=== PATIENT | female | born 1985 | race Caucasian/White ===

== ENCOUNTER → 2024-03-16 | Outpatient (CLI) | payer BC, SELFPAY ==
[2024-03-16 09:25] LABS: Misc Send Out* See Sep Rpt
[2024-03-16 10:29] LABS: Free T4 (Free Thyroxine) 1.05 ng/dL (0.89-1.76); Thyroid Stimulating Hormone 0.82 uIU/mL (0.55-4.78)
[2024-03-23 06:17] LABS: 17-Hydroxyprogesterone* 10 ng/dL; DHEA Sulfate* 336 mcg/dL (23-266); Prolactin* 4.3 ng/mL; Testosterone,Total* 18 ng/dL (2-45)
== END | disposition home or self-care (01) ==
PROVIDERS: PCP Registered Nurse; Referring Provider Internal Medicine Endocrinology, Diabetes & Metabolism; Visit Provider Internal Medicine Endocrinology, Diabetes & Metabolism
DX: R63.5 Abnormal weight gain (principal)
CPT/HCPCS: 36415; 82157; 82627; 83498; 84146; 84403; 84439; 84443

== ENCOUNTER → 2024-03-17 | Outpatient (CLI) | payer BC, SELFPAY ==
[2024-03-17 12:08] LABS: Misc Send Out* See Sep Rpt
== END | disposition home or self-care (01) ==
PROVIDERS: Referring Provider Internal Medicine Endocrinology, Diabetes & Metabolism; Visit Provider Internal Medicine Endocrinology, Diabetes & Metabolism
DX: Z53.8 Procedure and treatment not carried out for other reasons (principal)

== ENCOUNTER → 2024-05-03 | Outpatient (CLI) | payer BC, SELFPAY ==
[2024-05-03 19:07] LABS: HCG,Qualitative Serum Negative
== END | disposition home or self-care (01) ==
LOC: COPL 16:28
PROVIDERS: PCP Family Medicine; Referring Provider Internal Medicine Endocrinology, Diabetes & Metabolism; Visit Provider Internal Medicine Endocrinology, Diabetes & Metabolism
DX: R63.5 Abnormal weight gain (principal)
CPT/HCPCS: 36415; 84703

== ENCOUNTER → 2024-06-01 | Outpatient (CLI) | payer BC, SELFPAY ==
--- NOTE | 2024-06-01 15:00 | XR_ITS ---
Examination: Thyroid sonography complete Technique: Grayscale sonographic images thyroid lobes with color flow analysis Exam date and time: May 28, 2024 1519 hrs. Right thyroid nodules on thyroid sonogram September 26, 2008 Findings: Right thyroid 6.0 x 2.0 x 2.0 cm Upper pole nodule 5 x 6 mm Midpole nodule 6 x 6 mm Lower pole complex mass moderate vascularity 2.3 x 1.7 x 1.6 cm Left thyroid 5.5 x 1.7 x 2.1 cm No nodules Impression: Right thyroid nodules as above Recommend ultrasound-guided fine-needle aspiration of the complex vascular lower pole right thyroid nodule 2.3 x 1.7 x 1.6 cm
== END | disposition home or self-care (01) ==
LOC: CDIM 14:45
PROVIDERS: PCP Registered Nurse; Referring Provider Internal Medicine Endocrinology, Diabetes & Metabolism; Visit Provider Internal Medicine Endocrinology, Diabetes & Metabolism
DX: E04.2 Nontoxic multinodular goiter (principal)
CPT/HCPCS: 76536

== ENCOUNTER → 2024-10-06 | Outpatient (CLI) | payer BC, SELFPAY ==
[2024-10-05 10:23] LABS: Basophils % (Auto) 0 % (0-2.5); Eosinophils # (Auto) 0.1 Thou/mm3 (0.0-0.5); Eosinophils % (Auto) 1 % (0-10); Hematocrit 38.9 % (36.0-46.0); Hemoglobin 13.5 g/dL (12.0-16.0); Immature Granulocytes % (Auto) 0 % (0-0); Immature Granulocytes Auto 0.02 Thou/mm3 (0.00-0.00); Lymphocytes % (Auto) 27 % (10-50); Mean Corpuscular HGB Conc 34.7 g/dl (31.0-37.0); Mean Corpuscular Volume 86 fL (80-100); Monocytes # (Auto) 0.4 Thou/mm3 (0.0-0.8); Monocytes % (Auto) 6 % (0-12); Neutrophils # (Auto) 4.7 Thou/mm3 (1.8-7.7); Neutrophils % (Auto) 65 % (37-80); Nucleated Red Blood Cell % 0 /100 WBC (0); Platelet Count 195 Thou/mm3 (140-440); RDW Standard Deviation 40.5 fL (36.4-46.3); White Blood Count 7.3 Thou/mm3 (3.6-11.0)
[2024-10-05 10:31] LABS: INR 0.9 (0.9-1.3); Partial Thromboplastin Time 26.1 Seconds (22.0-36.0); Prothrombin Time 10.3 Seconds (9.0-12.2)
[2024-10-05 13:48] LABS: HCG,Qualitative Serum Negative
--- NOTE | 2024-10-06 09:00 | XR_ITS ---
Examination: Ultrasound-guided fine needle percutaneous aspiration thyroid nodule, right thyroid nodule. Thyroid sonography, limited Exam date and time: October 06, 2024 0840 hours INDICATIONS: Thyroid sonogram June 01, 2024 lower pole complex vascular right thyroid nodule 2.3 x 1.7 x 1.6 cm. Technique: A timeout was completed verifying correct patient, procedure, site, positioning and special equipment if applicable. The patient was placed in supine position for the thyroid fine needle percutaneous aspiration The patient's right neck was prepped and draped in sterile fashion. Maximum barrier sterile technique, hand hygiene, ultrasound sterile technique. 1% lidocaine was used to anesthetize the skin and subcutaneous tissues to the patient's right thyroid nodule. Multiple fine needle aspirations were performed and multiple thyroid specimens placed in preservative according to the irm protocol. Specimens appears satisfactory. The attending radiologist was present for the entire procedure. Estimated blood loss 3 cc. The patient tolerated the procedure well and there were no complications. Impression: Successful ultrasound-guided fine-needle percutaneous aspiration thyroid nodule, right thyroid nodule.
== END | disposition home or self-care (01) ==
LOC: SIRX 08:27
PROVIDERS: Radiology Diagnostic Radiology; PCP Registered Nurse; Referring Provider Internal Medicine Endocrinology, Diabetes & Metabolism; Visit Provider Internal Medicine Endocrinology, Diabetes & Metabolism
DX: E04.1 Nontoxic single thyroid nodule (principal); Z01.812 Encounter for preprocedural laboratory examination
CPT/HCPCS: 10005; 36415; 84703; 85025; 85610; 85730

== ENCOUNTER 2025-01-06 09:36 | Emergency (ER) | payer BC, SELFPAY ==
[2025-01-06 09:49] VITALS: BP 132/85; PULSE 71; RESP 18; TEMP 36.9; O2SAT 97
--- NOTE | 2025-01-06 10:08 | XR_ITS ---
Examination: CT abdomen with intravenous contrast CT pelvis with intravenous contrast 2-D coronal reconstructions 2-D sagittal reconstructions Date and time of exam:January 06, 2025 1315 hours INDICATIONS: Onset right lower abdominal pain beginning today. CTDI: vol (mGy) 13.7 DLP: (mGycm) 755 Technique: Multiple axial sections of the abdomen and pelvis have been obtained. 64 slice high-resolution scanner used. 3 mm axial sections have been obtained, post intravenous injection 2-D sagittal, coronal reconstructions obtained. Low dose protocols were performed. One or more of the following dose reduction techniques were used; automated exposure control, adjustment of the mA and/or KV according to patient size, use of iterative reconstruction technique. Findings: No focal liver or splenic lesions No gallstones No pancreatic or adrenal mass No renal or ureteral calculi, no hydronephrosis Aorta normal size No bowel obstruction Colonic diverticulosis, no diverticulitis Normal appendix Urinary bladder intact IMPRESSION: Normal appendix
--- NOTE | 2025-01-06 10:08 | PD.EDRME ---
Rapid Medical Screening Exam RME Arrival date/time: 01/06/25 09:36 39-year-old female presents to the emergency department for concerns for possible appendicitis patient with right lower quadrant abdominal pain since this morning Chief Complaint: Abdominal Pain Vital signs: Vital Signs Temperature 98.5 F 01/06/25 09:49 Pulse Rate 71 01/06/25 09:49 Respiratory Rate 18 01/06/25 09:49 Blood Pressure 132/85 H 01/06/25 09:49 Pulse Oximetry (%) 97 01/06/25 09:49
[2025-01-06 10:20] LABS: Collection Type, Urine Clean Catch
[2025-01-06 10:27] LABS: Bilirubin,Urine Negative (Negative); Blood,Urine 2+ (Negative); Clarity,Urine Clear (Clear/Hazy); Color,Urine Lt-Yellow (Lt Yel-Yel); Culture Indicated,Urine Not Indicated; Glucose, Urine Negative (Negative); Ketones,Urine Negative (Negative); Leukocyte Esterase,Urine Negative (Negative); Nitrite,Urine Negative (Negative); PH,Urine 6.0 (5.0-7.0); Protein,Urine Negative (Neg - Trace); RBC,Urine 1 /hpf (0-3); Specific Gravity,Urine 1.018 (1.001-1.035); Squamous Epithelial Cell,Urine 3 /hpf (0-5); Urobilinogen,Urine Negative mg/dL (0.0-1.0); WBC,Urine 2 /hpf (0-5)
[2025-01-06 10:27] LABS: Basophils # (Auto) 0.0 Thou/mm3 (0.0-0.2); Basophils % (Auto) 0 % (0-2.5); Eosinophils # (Auto) 0.1 Thou/mm3 (0.0-0.5); Eosinophils % (Auto) 1 % (0-10); Hematocrit 37.7 % (36.0-46.0); Hemoglobin 12.8 g/dL (12.0-16.0); Immature Granulocytes Auto 0.03 Thou/mm3 (0.00-0.00); Lymphocytes # (Auto) 1.7 Thou/mm3 (1.0-4.8); Lymphocytes % (Auto) 18 % (10-50); Mean Corpuscular HGB Conc 34.0 g/dl (31.0-37.0); Mean Corpuscular Hemoglobin 29.6 pg (25.0-35.0); Mean Corpuscular Volume 87 fL (80-100); Monocytes # (Auto) 0.5 Thou/mm3 (0.0-0.8); Monocytes % (Auto) 5 % (0-12); Neutrophils # (Auto) 7.0 Thou/mm3 (1.8-7.7); Neutrophils % (Auto) 76 % (37-80); Nucleated Red Blood Cell # 0.00 Thou/mm3 (0.00-0.00); Nucleated Red Blood Cell % 0 /100 WBC (0); Platelet Count 212 Thou/mm3 (140-440); RDW Standard Deviation 39.8 fL (36.4-46.3); Red Blood Count 4.32 Miln/mm3 (4.00-5.20); White Blood Count 9.3 Thou/mm3 (3.6-11.0)
[2025-01-06 10:31] LABS: HCG Qualitative,Urine Negative
[2025-01-06 10:43] LABS: Alanine Aminotransferase 57 U/L (10-49); Albumin, Serum 4.7 gm/dL (3.5-5.0); Albumin/Globulin Ratio 2.2 (1.2-2.2); Alkaline Phosphatase 80 U/L (46-116); Anion Gap 10 (7-16); Aspartate Amino Transferase 46 U/L (0-34); BUN/Creatinine Ratio 23 Ratio (12-20); Bilirubin,Total 0.6 mg/dL (0.3-1.2); Blood Urea Nitrogen 14 mg/dL (9-23); Calcium 9.9 mg/dL (8.3-10.6); Calcium (Corrected) 9.9 mg/dL (8.5-10.1); Carbon Dioxide 26.2 mMol/L (20.0-31.0); Chloride 107 mMol/L (98-107); Creatinine (Component) 0.6 mg/dL (0.6-1.3); Globulin 2.1 gm/dL (2.3-3.5); Glucose 87 mg/dL (74-106); Osmolality,Calculated 284 (275-295); Potassium 3.8 mMol/L (3.4-5.1); Sodium 143 mMol/L (136-145); Total Protein 6.8 gm/dL (5.7-8.2); eGFR > 60 See Note
--- NOTE | 2025-01-06 11:17 | XR_ITS ---
Examination: Pelvic ultrasound, transabdominal, complete Technique: Transabdominal ultrasound of the pelvis performed using grayscale imaging Date and time of exam: January 06, 2025, 11:50 AM INDICATIONS: Right lower abdominal pain today FINDINGS: Uterus 8.1 cm uterine fundal mass 3.8 x 3.1 x 3.2 cm Endometrial stripe 0.4 cm Right ovary 3.1 cm arterial flow Left ovary 3.0 cm arterial flow IMPRESSION: Uterine fundal area of probable fibroid degeneration, 3.8 x 3.1 x 3.2 cm, recommend 3 month follow-up transvaginal pelvic sonography
--- NOTE | 2025-01-06 13:52 | PD.EDABDPN ---
ED Abdominal Pain RME/HPI General Chief Complaint: Abdominal Pain Stated complaint: LRQ ABD PAIN, N/V, CONSTIPATION Time seen by provider: 01/06/25 13:52 Arrival date/time: 01/06/25 09:36 39-year-old female presents to the emergency department for concerns for possible appendicitis patient with right lower quadrant abdominal pain since this morning Limitations: no limitations RME / HPI RME / HPI narrative: 01/06/25 09:36 39-year-old female presents to the emergency department for concerns for possible appendicitis patient with right lower quadrant abdominal pain since this morning Related Data Previous Rx's ?Medication ?Instructions ?Recorded cyclobenzaprine 5 mg tablet 5 mg PO QDAY PRN muscle spasm #14 09/14/20 tabs ibuprofen 800 mg tablet (IBU) 800 mg PO TID PRN pain #30 tabs 09/14/20 Allergies Allergy/AdvReac Type Severity Reaction Status Date / Time No Known Allergies Allergy Verified 09/14/20 08:36 Review of Systems Review of Systems Systems Reviewed: All systems reviewed, normal except as documented Constitutional Constitutional: Reports system reviewed and no additional complaints, except as documented, Denies fever(s) and Denies headache(s) Eyes Eyes: Reports system reviewed and no additional complaints, except as documented and Denies blurry vision ENT Ears, Nose, Mouth, and Throat: Reports system reviewed and no additional complaints, except as documented, Denies headache(s), Denies nasal congestion and Denies nasal discharge Cardiovascular Cardiovascular: Reports system reviewed and no additional complaints, except as documented, Denies chest pain and Denies dyspnea Respiratory Respiratory: Reports system reviewed and no additional complaints, except as documented, Denies chest congestion, Denies cough and Denies dyspnea Gastrointestinal Gastrointestinal: Reports system reviewed and no additional complaints, except as documented and Reports abdominal pain Integumentary/Breasts Skin/Breast: Reports system reviewed and no additional complaints, except as documented and Denies rash Neurologic Neurologic: Reports system reviewed and no additional complaints, except as documented, Reports as per HPI and Denies headache(s) Past Medical History Past Medical History CARDIAC: Negative Cardiac Disorders or Congestive Heart Failure RESPIRATORY: Negative Chronic Obstructive Pulmonary Disease (COPD) or Asthma GENITOURINARY: Negative Renal Disease ENDOCRINE: Negative Diabetes Mellitus Type 1 or Diabetes Mellitus Type 2 HEMATOLOGIC: Negative Sickle Cell Disease Social History SMOKING STATUS: Never smoker ED Exam General Limitations: Present no limitations General appearance: Present alert and in no apparent distress Head Head exam: Present atraumatic Eye Eye exam: Present normal appearance, PERRL and EOMI ENT ENT exam: Present normal exam, normal oropharynx and mucous membranes moist Neck Neck exam: Present normal inspection, full ROM and trachea midline Chest Chest inspection: Present normal inspection and symmetric chest wall rise Respiratory Respiratory exam: Present normal lung sounds bilaterally Cardiovascular Cardiovascular exam: Present regular rate, normal rhythm and normal heart sounds Abdominal Exam Abdominal exam: Present soft, tenderness and normal bowel sounds; Absent distention, guarding, rebound or rigidity Extremities Exam Extremities exam: Present normal inspection and full ROM Back Exam Back exam: Present normal inspection and full ROM Neurological Exam Neurological exam: Present alert, oriented X3 and CN II-XII intact Psychiatric Psychiatric exam: Present normal affect and normal mood Skin Skin exam: Present warm, dry, intact and normal color Course Quality Measures none Orders Category Date Time Status CT Screening NOW Care 01/06/25 10:[address] abdomen pelvis w con Stat Exams 01/06/25 10:08 Completed US pelvic complete Stat Exams 01/06/25 11:17 Completed CBC Stat Lab 01/06/25 10:19 Completed Comprehensive Metabolic Panel Stat Lab 01/06/25 10:19 Completed HCG Qualitative,Urine Stat Lab 01/06/25 10:16 Completed UA, C/S IF [Urinalysis, C/S if Indicated] Stat Lab 01/06/25 10:16 Completed Vital Signs Vital signs: Vital Signs Temperature 98.5 F 01/06/25 09:49 Pulse Rate 71 01/06/25 09:49 Respiratory Rate 18 01/06/25 09:49 Blood Pressure 132/85 H 01/06/25 09:49 Pulse Oximetry (%) 97 01/06/25 09:49 o2 sat 97% r.a wnl Abdominal Pain MDM MDM Narrative MDM Narrative:: 39-year-old female presents to the emergency department for concerns for possible appendicitis patient with right lower quadrant abdominal pain since this morning On exam patient well-appearing patient does not appear look toxic no acute distress Patient is hemodynamically stable Patient does report right lower quadrant abdominal pain and report he is afraid she has appendicitis Lab work and imaging obtained no acute emergent findings noted Ultrasound findings per radiologist FINDINGS: Uterus 8.1 cm uterine fundal mass 3.8 x 3.1 x 3.2 cm Endometrial stripe 0.4 cm Right ovary 3.1 cm arterial flow Left ovary 3.0 cm arterial flow IMPRESSION: Uterine fundal area of probable fibroid degeneration, 3.8 x 3.1 x 3.2 cm, recommend 3 month follow-up transvaginal pelvic sonography Patient instructed to follow-up to have outpatient ultrasound next 3 months for emergent concerns return Patient discharged home in no distress to follow-up with primary care doctor in the next 24 to 48 hours and for any worsening symptoms to return to the ER immediately Patient data External records reviewed:: [facility] previous records Clinical information provided by:: patient Social determinants that could affect healthcare access:: none Patient has the following chronic illnesses:: none How is presenting disease/condition affected by chronic disease/condition?: no chronic disease Evaluation data The following diagnostics were reviewed and interpreted by me:: lab results and radiology exam(s) Lab and/or radiology exams considered but not ordered:: Radiology obtained Interpretation Summary: Reviewed by me Medications / Prescriptions Medications or Prescriptions considered but not ordered:: Given Medication administrations:: given Consultations Consultation(s) initiated? (list below): No Diagnosis Differential diagnosis abdominal pain: abdominal pain, acute appendicitis, pancreatitis and small bowel obstruction Most likely diagnosis given after review of the tests above:: abd pain Admission Indicated Admission indicated?: not indicated Admission Request Was there a request for admission?: No Disposition Plan Disposition Plan: Discharge Discharge Attestation Discharge Attestation: The patient and all family members were given an opportunity to ask questions and understood the discharge instructions. Discharge instructions specifically effects, indications for sooner follow up or return to the emergency department, and the expected course of current diagnosis. Patient condition: Stable Discharge Plan Plan Patient Disposition: HOME (Self Care) Discharge Disposition comment: Stable Prescriptions/Referrals Prescriptions/Med Rec: No Action cyclobenzaprine 5 mg tablet 5 mg PO QDAY PRN (Reason: muscle spasm) Qty: 14 0RF ibuprofen [IBU] 800 mg tablet 800 mg PO TID PRN (Reason: pain) Qty: 30 0RF Referrals: No Primary/Family,Physician [Primary Care Provider] - 01/07/25 Problem List Clinical Impression: Fibroid, uterine, Abdominal pain Patient/Caregiver Discharge Instructions Education Materials: Abdominal Pain Additional Instructions: Please follow up with your primary care doctor in the next 24-48hrs for any worsening symptoms return here immediately please bring copy of your CT report to your PCP request outpatient repeat pelvic ultrasound in 3 months For emergent concerns return immediately Print Language: Mohawk Stand Alone Forms: Emelyn Award Info., Work/School Release, Patient Portal Info Letter PA/ROPE LAYING MACHINE OPERATOR Supervising Physician PA/ROPE LAYING MACHINE OPERATOR Supervising Physician: Dr. wallace
== END 2025-01-06 14:16 | disposition home or self-care (01) ==
PROVIDERS: Nurse Practitioner Primary Care; Emergency Provider Family Medicine
DX: D25.9 Leiomyoma of uterus, unspecified (principal); R10.31 Right lower quadrant pain
CPT/HCPCS: 36415; 74177; 76856; 80053; 81001; 81025; 85025; 99284; A4649; Q9967

== ENCOUNTER → 2025-02-14 | Outpatient (CLI) | payer BC, SELFPAY ==
[2025-02-14 09:45] LABS: Misc Send Out* See Sep Rpt
[2025-02-14 10:30] LABS: Basophils # (Auto) 0.0 Thou/mm3 (0.0-0.2); Basophils % (Auto) 0 % (0-2.5); Eosinophils # (Auto) 0.1 Thou/mm3 (0.0-0.5); Eosinophils % (Auto) 2 % (0-10); Hematocrit 41.0 % (36.0-46.0); Hemoglobin 13.4 g/dL (12.0-16.0); Immature Granulocytes Auto 0.02 Thou/mm3 (0.00-0.00); Lymphocytes # (Auto) 1.3 Thou/mm3 (1.0-4.8); Lymphocytes % (Auto) 22 % (10-50); Mean Corpuscular HGB Conc 32.7 g/dl (31.0-37.0); Mean Corpuscular Hemoglobin 28.9 pg (25.0-35.0); Mean Corpuscular Volume 88 fL (80-100); Monocytes # (Auto) 0.4 Thou/mm3 (0.0-0.8); Monocytes % (Auto) 6 % (0-12); Neutrophils # (Auto) 4.2 Thou/mm3 (1.8-7.7); Neutrophils % (Auto) 70 % (37-80); Nucleated Red Blood Cell # 0.00 Thou/mm3 (0.00-0.00); Nucleated Red Blood Cell % 0 /100 WBC (0); Platelet Count 208 Thou/mm3 (140-440); RDW Standard Deviation 41.3 fL (36.4-46.3); Red Blood Count 4.64 Miln/mm3 (4.00-5.20); White Blood Count 6.0 Thou/mm3 (3.6-11.0)
[2025-02-14 10:55] LABS: Alanine Aminotransferase 41 U/L (10-49); Albumin, Serum 4.7 gm/dL (3.5-5.0); Albumin/Globulin Ratio 1.8 (1.2-2.2); Alkaline Phosphatase 77 U/L (46-116); Anion Gap 9 (7-16); Aspartate Amino Transferase 17 U/L (0-34); BUN/Creatinine Ratio 17 Ratio (12-20); Bilirubin,Total 0.5 mg/dL (0.3-1.2); Blood Urea Nitrogen 12 mg/dL (9-23); Calcium 9.8 mg/dL (8.3-10.6); Calcium (Corrected) 9.8 mg/dL (8.5-10.1); Carbon Dioxide 26.9 mMol/L (20.0-31.0); Chloride 105 mMol/L (98-107); Creatinine (Component) 0.7 mg/dL (0.6-1.3); Globulin 2.6 gm/dL (2.3-3.5); Glucose 90 mg/dL (74-106); Osmolality,Calculated 280 (275-295); Potassium 4.1 mMol/L (3.4-5.1); Sodium 141 mMol/L (136-145); Total Protein 7.3 gm/dL (5.7-8.2); eGFR > 60 See Note
[2025-02-14 10:56] LABS: Ferritin 15 ng/mL (7.3-270.7); Iron 55 mcg/dL (50-170); Percent Iron Saturation 13 % (20-55); Total Iron Binding Capacity 394 mcg/dL (250-425); Unsaturated Iron Binding 339 (225-295)
[2025-02-14 10:57] LABS: Follicle Stimulating Hormone 13.16 mIU/mL (See Note); Vitamin D 25 Hydroxy Total 21.7 ng/mL (7.3-40.2)
[2025-02-17 06:33] LABS: ACTH, Plasma* 12 pg/mL (6-50)
[2025-02-22 06:15] LABS: Cortisol,total,LC/MS/MS* 7.4 mcg/dL; Luteinizing Hormone* 4.0 mIU/mL
== END | disposition home or self-care (01) ==
LOC: COPL 09:14
PROVIDERS: PCP Family Medicine; Referring Provider Nurse Practitioner Family; Visit Provider Nurse Practitioner Family
DX: R53.83 Other fatigue (principal); N95.1 Menopausal and female climacteric states
CPT/HCPCS: 36415; 80053; 82024; 82306; 82533; 82728; 83001; 83002; 83540; 83550; 85025